=== PATIENT | female | born 1955 | race Two or more races ===

== ENCOUNTER 2022-03-26 17:06 | Emergency (ER) | payer OTHER ==
[~2022-03-26] VITALS: Ht 172.7 cm; Wt 72.6 kg
== END 2022-03-26 19:50 | disposition home or self-care (01) ==
LOC: ER 17:06
DX: S49.81XA Other specified injuries of right shoulder and upper arm, initial encounter (principal); X58.XXXA Exposure to other specified factors, initial encounter; Y93.89 Activity, other specified; Y92.9 Unspecified place or not applicable; Y99.9 Unspecified external cause status

== ENCOUNTER 2022-04-01 10:36 | Outpatient (CLI) | payer OTHER | END 2022-04-01 10:44 | disposition home or self-care (01) | LOC: MRI 10:36 | PROVIDERS: ATTEND Orthopaedic Surgery | DX: M25.511 Pain in right shoulder (principal); M75.121 Complete rotator cuff tear or rupture of right shoulder, not specified as traumatic | CPT/HCPCS: 73721 ==

== ENCOUNTER 2022-06-18 10:18 | Emergency (ER) | payer OTHER ==
[~2022-06-18] VITALS: Ht 172.7 cm; Wt 74.4 kg
== END 2022-06-18 14:52 | disposition home or self-care (01) ==
LOC: ER 10:18
DX: M62.838 Other muscle spasm (principal); S46.812A Strain of other muscles, fascia and tendons at shoulder and upper arm level, left arm, initial encounter; X58.XXXA Exposure to other specified factors, initial encounter; Y93.9 Activity, unspecified; Y92.9 Unspecified place or not applicable; Y99.9 Unspecified external cause status; M54.6 Pain in thoracic spine

== ENCOUNTER 2022-06-23 10:35 | Outpatient (CLI) | payer OTHER | END 2022-06-23 10:45 | disposition home or self-care (01) | LOC: MAMO-SONO 10:35 | PROVIDERS: ATTEND Internal Medicine | DX: N63.0 Unspecified lump in unspecified breast (principal); Z12.31 Encounter for screening mammogram for malignant neoplasm of breast; M54.6 Pain in thoracic spine ==

== ENCOUNTER 2022-06-23 11:31 | Outpatient (CLI) | payer OTHER | END 2022-06-23 11:32 | disposition home or self-care (01) | LOC: NUCLEAR 11:31 | PROVIDERS: ATTEND Internal Medicine | DX: M81.0 Age-related osteoporosis without current pathological fracture (principal) ==

== ENCOUNTER → 2022-06-23 | Outpatient (CLI) | payer OTHER | END | disposition home or self-care (01) | LOC: LAB 08:17 | PROVIDERS: ATTEND Internal Medicine | DX: E78.00 Pure hypercholesterolemia, unspecified (principal); E03.8 Other specified hypothyroidism; E11.69 Type 2 diabetes mellitus with other specified complication; N39.0 Urinary tract infection, site not specified; D63.1 Anemia in chronic kidney disease; E55.9 Vitamin D deficiency, unspecified ==

== ENCOUNTER 2022-07-22 10:39 | Outpatient (CLI) | payer OTHER | END 2022-07-22 10:46 | disposition home or self-care (01) | LOC: SONOGRAMA 10:39 | PROVIDERS: ATTEND Surgery | DX: N60.11 Diffuse cystic mastopathy of right breast (principal); N60.12 Diffuse cystic mastopathy of left breast; N60.22 Fibroadenosis of left breast ==

== ENCOUNTER 2024-04-02 09:24 | Emergency (ER) | payer OTHER ==
[~2024-04-02] VITALS: Ht 172.7 cm; Wt 69.9 kg
[2024-04-02 10:09] LABS: HEMATOCRIT 37.5 % (36.0-45.00); HEMOGLOBIN 12.7 g/dL (12.0-15.00); MEAN CELL VOLUME 88.8 fL (80.00-100.00); MEAN CORPUSCULAR HEMOGLOBIN 30.1 pg (27.00-32.0); MEAN CORPUSCULAR HGB CONC 33.9 g/dl (32.0-36.0); PLATELET COUNT 228 K/uL (150-450); RED BLOOD COUNT 4.23 M/uL (4.00-6.00)
[2024-04-02 11:02] LABS: ALBUMIN 3.9 gm/dL (3.4-5.0); BILIRUBIN TOTAL 0.54 mg/dL (0.3-1.2); CALCIUM 8.9 mg/dL (8.5-10.1); CREATININE SERUM 0.71 mg/dL (0.55-1.02); GFR 81.86; GLOBULINA 3.8 G/DL (2.4-3.5); POTASSIUM 4.21 mEq/L (3.5-5.1); TOTAL PROTEIN 7.7 gm/dL (6.4-8.2)
== END 2024-04-02 11:49 | disposition home or self-care (01) ==
LOC: ER
PROVIDERS: General Practice
DX: R51.9 Headache, unspecified (principal); R42 Dizziness and giddiness; M54.2 Cervicalgia; Z20.822 Contact with and (suspected) exposure to COVID-19; I10 Essential (primary) hypertension
CPT/HCPCS: 36415; 70460; 72125; 99284; Q9965

== ENCOUNTER 2024-07-09 13:10 | Outpatient (CLI) | payer OTHER | END 2024-07-09 13:21 | disposition home or self-care (01) | LOC: MRI 13:10 | PROVIDERS: ATTEND Internal Medicine | DX: M54.17 Radiculopathy, lumbosacral region (principal); S83.242A Other tear of medial meniscus, current injury, left knee, initial encounter | CPT/HCPCS: 73721 ==

== ENCOUNTER → 2025-07-01 | Outpatient (CLI) | payer OTHER | END | disposition home or self-care (01) | LOC: MAMO-SONO 13:58 | DX: Z12.31 Encounter for screening mammogram for malignant neoplasm of breast (principal) ==